=== PATIENT | female | born 1950 | race Caucasian/White ===

== ENCOUNTER 2018-09-15 10:21 | Emergency (ER) | payer MEDICARE, OTHER ==
[~2018-09-15] VITALS: Ht 170.2 cm; Wt 79.1 kg
[~2018-09-15 10:21] MED LIST: OMEPRAZOLE20 M1 PO
[2018-09-15 10:24] VITALS: Ht 170.2 cm; Wt 79.1 kg
[2018-09-15] MEDS ORDERED: MYLANTA II SUSP30 ML PO (10:27)
[2018-09-15] MEDS ORDERED: ZANTAC300 MG (10:27)
[2018-09-15] MEDS ORDERED: [UNRECOGNIZED DRUG - OTHER] (10:28)
[2018-09-15 10:52] LABS: BASOPHILS 0.1 % (0-2); EOSINOPHILS 0.3 % (0-7); HEMATOCRIT 38.7 % (36.0-48.0); HEMOGLOBIN 13.7 g/dL (12-16); IMMATURE GRANULOCYTES 0.1 % (0-5); LYMPHOCYTES 24.7 % (15-50); MCHC 35.4 g/dL (31.0-37.0); MCV 90.4 fL (80.0-100.0); MEAN PLATELET VOLUME 9.1 fL (7.4-10.4); NEUTROPHILS 66.8 % (40-80); RBC 4.28 10x6/uL (4.00-5.40); RDW 12.8 % (11.5-14.5)
[2018-09-15 11:01] LABS: PLATELET COUNT 290 10x3/uL (130-400)
[2018-09-15 11:06] LABS: ALBUMIN 3.8 g/dL (3.4-5.0); ANION GAP 15.3 mmol/L (8-16); BILIRUBIN - TOTAL 0.46 mg/dL (0.2-1.3); CARBON DIOXIDE 23.1 mmol/L (21.0-32.0); CREATININE - SERUM 0.9 mg/dL (0.6-1.3); POTASSIUM - SERUM 4.4 mmol/L (3.5-5.1)
[2018-09-15] MEDS ORDERED: OMEPRAZOLE40 MG PO (12:03)
[2018-09-15 12:25] VITALS: BP 114/67
== END 2018-09-15 12:25 | disposition home or self-care (01) ==
LOC: D.ER 10:21
PROVIDERS: Family Medicine
DX: K92.1 Melena (principal)